=== PATIENT | female | born 1970 | race African-American/Black ===

== ENCOUNTER 2017-08-29 15:03 | Emergency (ER) | payer OTHER ==
[~2017-08-29] VITALS: Ht 160 cm; Wt 91.4 kg
[~2017-08-29 15:03] MED LIST: AMOX TR-K CLV1 EAC4 PO; BACTRIM,SEPT1 TABLET PO; BACTROBAN OINTM22 GM TP; BRINTELLIX10 MG PO; CARAFATE100 MG/ML PO; CLONIDINE HCL0.1 MG PO; INDOCIN50 MG PO; KEFLEX500 MG PO; LOSARTAN POTAS100 MG PO; METHADONE10 MG PO; MOTRIN800 MG PO; MULTIVITAMIN1 EAC1 PO; NAPROSYN500 MG PO; PERCOCET 5/31 TABLET PO; TRAZODONE HCL50 MG PO; TRILEPTAL150 MG PO; ULTRAM50 MG PO; VIRTUSSIN AC L118 ML PO
[2017-08-29] MEDS ORDERED: ZOFRAN ODT8 MG PO (19:02)
[2017-08-29] MEDS ORDERED: TRAZODONE HCL50 MG PO (19:02)
[2017-08-29] MEDS ORDERED: PREDNISONE20 MG PO (19:02)
[2017-08-29] MEDS ORDERED: INDOCIN50 MG PO (19:02)
[2017-08-29 19:31] VITALS: BP 145/99
== END 2017-08-29 19:33 | disposition home or self-care (01) ==
LOC: EME 15:03
DX: R11.2 Nausea with vomiting, unspecified (principal); Z79.891 Long term (current) use of opiate analgesic; M54.5 Low back pain; G89.29 Other chronic pain; Z91.14 Patient's other noncompliance with medication regimen; I10 Essential (primary) hypertension; Z98.84 Bariatric surgery status; F17.200 Nicotine dependence, unspecified, uncomplicated
CPT/HCPCS: 99281; 99284; J7512

== ENCOUNTER 2017-11-13 01:19 | Emergency (ER) | payer OTHER ==
[~2017-11-13] VITALS: Ht 160 cm; Wt 94.7 kg
[~2017-11-13 01:19] MED LIST changes: +PREDNISONE20 MG PO; +ZOFRAN ODT8 MG PO
[2017-11-13 02:01] LABS: HEMATOCRIT 36.3 % (36.0-46.0); HEMOGLOBIN 11.7 G/DL (11.9-15.5); MCH 25.5 PG (29.0-34.0); MCHC 32.2 G/DL (30.0-36.0); MCV 79.3 FL (83-99); PLATELET COUNT 327 K/uL (156-360); RBC DIS.WIDTH-CV 17.5 % (11.8-14.6); RBC DIS.WIDTH-SD 50.7 % (39-53); RED BLOOD COUNT 4.58 M/uL (3.80-5.20); WHITE BLOOD COUNT 9.1 K/uL (4.1-10.2)
[2017-11-13 02:14] LABS: CHLORIDE 105 mEq/L (99-109); POTASSIUM 4.3 mEq/L (3.7-5.4); SODIUM 141 mEq/L (136-147)
[2017-11-13 02:15] LABS: GLUCOSE 97 mg/dL (70-99)
[2017-11-13 02:19] LABS: CREATININE 0.8 mg/dL (0.6-1.3); GFR ESTIMATE (CALCULATED) > 59 mL/min/
[2017-11-13 02:20] LABS: UREA NITROGEN (BUN) 10 mg/dL (9-23)
[2017-11-13 02:23] LABS: TROP-I INTERPRETATION NEGATIVE; TROPONIN-I < 0.01 ng/mL (0.0-0.30)
[2017-11-13 03:53] VITALS: BP 139/74
== END 2017-11-13 03:54 | disposition home or self-care (01) ==
LOC: EME 01:19
PROVIDERS: Emergency Medicine
DX: R00.2 Palpitations (principal); T50.995A Adverse effect of other drugs, medicaments and biological substances, initial encounter; I10 Essential (primary) hypertension; M19.90 Unspecified osteoarthritis, unspecified site; F32.9 Major depressive disorder, single episode, unspecified; F41.9 Anxiety disorder, unspecified; F17.200 Nicotine dependence, unspecified, uncomplicated; Z79.891 Long term (current) use of opiate analgesic; Z98.84 Bariatric surgery status; Z88.6 Allergy status to analgesic agent; Z88.5 Allergy status to narcotic agent
CPT/HCPCS: 80048; 84484; 85027; 93005; 99281; 99284